=== PATIENT | male | born 1970 | race Caucasian/White ===

== ENCOUNTER 2018-09-11 05:58 | Day surgery (SDC) | payer BC ==
[2018-09-11] MEDS ORDERED: Lactated Ringers 1,000 ML IV SCH (06:30)
[2018-09-11 08:50] VITALS: PULSE 63; O2SAT 98
[2018-09-11 09:20] VITALS: BP 155/98
[2018-09-11] MEDS ORDERED: Versed 2 MG/2 ML Injection IV ONE (12:12)
[2018-09-11] MEDS ORDERED: DIPRIVAN 200 MG/20 ML IV ONE (12:12)
--- NOTE | 2018-09-11 14:22 | OP ---
SURGERY DATE/TIME: 09/11/2018 0759 PREOPERATIVE DIAGNOSIS: Screening exam. POSTOPERATIVE DIAGNOSIS: External hemorrhoids otherwise normal exam. PROCEDURE: Colonoscopy. SURGEON: Dr. Patiño. ANESTHESIA: MAC. Medications given by anesthesia department. HISTORY: The patient is a 48 year-old white male presenting now for screening colonoscopy. He was appraised of the risks of the procedure including the risk of perforation, phlebitis, untoward reaction to medication, bleeding and missed lesions. The patient verbalized his understanding and desired to have the procedure performed. DESCRIPTION OF PROCEDURE: The patient was given the medications by the anesthesia department. He had continuous pulse oximetry, ECG monitoring, intermittent blood pressure monitoring and tidal CO2 monitoring during the examination. He was placed in the left lateral decubitus position. There was noted to be significant external hemorrhoids but no active bleeding. Anal sphincter tone was normal. Prostate was normal. No other masses were felt. The flexible Olympus pediatric colonoscope was used to intubate the rectum. A view of the colon was developed sequentially to the cecum. Upon insertion and withdrawal, including a retroflex view in the rectum, no mucosal lesions were encountered. The scope was removed from the patient who tolerated the procedure well and was sent back to OP recovery in good condition. The prep was noted to be fair to good.
== END 2018-09-11 09:15 | disposition home or self-care (01) ==
LOC: SDC 05:58
PROVIDERS: ATTEND Family Medicine
DX: Z12.11 Encounter for screening for malignant neoplasm of colon (principal); K64.4 Residual hemorrhoidal skin tags
CPT/HCPCS: 94250; J2250; J2704